=== PATIENT | male | born 1970 | race Caucasian/White ===

== ENCOUNTER 2023-03-29 10:52 | Outpatient (RCR) | payer MEDICAID, SELFPAY | END 2023-05-10 12:56 | disposition home or self-care (01) | LOC: PT 10:52 | PROVIDERS: PCP Family Medicine; Visit Provider Physician Assistant | DX: S46.012D Strain of muscle(s) and tendon(s) of the rotator cuff of left shoulder, subsequent encounter (principal); M75.22 Bicipital tendinitis, left shoulder ==

== ENCOUNTER 2023-05-22 15:04 | Outpatient (RCR) | payer MEDICAID, SELFPAY | END 2023-08-17 16:23 | disposition home or self-care (01) | LOC: PT 15:04 | PROVIDERS: PCP Family Medicine; Visit Provider Physician Assistant | DX: Z98.890 Other specified postprocedural states (principal); M75.22 Bicipital tendinitis, left shoulder; S46.012D Strain of muscle(s) and tendon(s) of the rotator cuff of left shoulder, subsequent encounter | CPT/HCPCS: 97110; 97112; 97161 ==